=== PATIENT | female | born 1995 | race Caucasian/White ===

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

== ENCOUNTER 2017-01-31 13:44 | Emergency (ER) | payer BC ==
[2017-01-31 13:58] VITALS: BP 114/56
--- NOTE | 2017-01-31 14:08 | UC ---
Lower Extremity/Ankle HPI - HPI Summary HPI Summary: believes she has an in grown left great toe nail---she trimmed her nails then got a pedicure--the she got an infection medical side of great toe--- - History of Current Complaint Chief Complaint: UCLowerExtremity Stated Complaint: INGROWN TOE NAIL Time Seen by Provider: 01/31/17 13:53 Hx Obtained From: Patient Hx Last Menstrual Period: 01/06/17 ?: No Onset/Duration: Sudden Onset, Lasting Days, Still Present Severity Initially: Moderate Severity Currently: Moderate Pain Intensity: 5 Pain Scale Used: 0-10 Numeric Aggravating Factor(s): Standing, Ambulation Alleviating Factor(s): Rest, Elevation Able to Bear Weight: Yes - Allergies/Home Medications Allergies/Adverse Reactions: Allergies Allergy/AdvReac Type Severity Reaction Status Date / Time Azithromycin Allergy throat Verified 01/31/17 13:58 swelling Cefuroxime [From Ceftin] Allergy face Verified 01/31/17 13:58 swelling Penicillins Allergy face Verified 01/31/17 13:58 swelling Sulfa Antibiotics Allergy Unknown Verified 01/31/17 13:58 Reaction Details PMH/Surg Hx/FS Hx/Imm Hx Previously Healthy: No Endocrine History Of: Denies: Diabetes, Thyroid Disease Cardiovascular History Of: Denies: Cardiac Disorders, Hypertension Respiratory History Of: Reports: Asthma - allergy induced Denies: COPD GI/ History Of: Denies: Ulcer - Surgical History Surgical History: Yes Surgery Procedure, Year, and Place: t&a - Family History Known Family History: Positive: Hypertension - Social History Occupation: Employed Full-time Lives: With Family Alcohol Use: None Substance Use Type: None Smoking Status (MU): Never Smoked Tobacco - Immunization History Most Recent Influenza Vaccination: season Review of Systems Constitutional: Negative Skin: Other - erythema left great toe Eyes: Negative ENT: Negative Respiratory: Negative Cardiovascular: Negative Gastrointestinal: Negative Genitourinary: Negative Motor: Negative Neurovascular: Negative Musculoskeletal: Negative Neurological: Negative Psychological: Negative All Other Systems Reviewed And Are Negative: Yes Physical Exam Triage Information Reviewed: Yes Appearance: Well-Appearing, No Pain Distress, Well-Nourished Vital Signs: Initial Vital Signs Temp 98.6 F 01/31/17 13:52 Pulse 95 01/31/17 13:52 Resp 18 01/31/17 13:52 BP 114/56 01/31/17 13:52 Pulse Ox 98 01/31/17 13:52 Vital Signs Reviewed: Yes Eye Exam: Normal Eyes: Positive: Conjunctiva Clear ENT Exam: Normal ENT: Positive: Normal ENT inspection, Hearing grossly normal, Pharynx normal, TMs normal. Negative: Nasal congestion, Nasal drainage, Tonsillar swelling, Tonsillar exudate, Trismus, Muffled/hoarse voice Dental Exam: Normal Neck exam: Normal Neck: Positive: Supple, Nontender, No Lymphadenopathy Respiratory Exam: Normal Respiratory: Positive: Chest non-tender, Lungs clear, Normal breath sounds, No respiratory distress, No accessory muscle use Cardiovascular Exam: Normal Cardiovascular: Positive: RRR, No Murmur, Pulses Normal, Brisk Capillary Refill Musculoskeletal Exam: Normal Musculoskeletal: Positive: Strength Intact, ROM Intact, Edema @ - medial left great toe Neurological Exam: Normal Neurological: Positive: Alert, Muscle Tone Normal Psychological Exam: Normal Skin Exam: Normal Lower Extremity Course/Dx - Course Course Of Treatment: warm soaks, bactroban, antibiodics should infection worsen or fail to improve - Differential Dx/Diagnosis Differential Diagnosis/HQI/PQRI: Cellulitis, Infection Provider Diagnoses: Paronychia, ingrown nail left great toe Discharge - Discharge Plan Condition: Stable Disposition: HOME Prescriptions: DOXYcycline CAP(*) [DOXYcycline 100MG CAP(*)] 100 mg PO BID #14 cap Mupirocin 2% CREAM* [Bactroban 2% CREAM*] 1 applic TOPICAL TID #1 tube Patient Education Materials: Paronychia (ED), Ingrown Nail (ED), Warm Compress or Soak (ED) Referrals: Keaton Harrington DPM [Doctor of Podiatric Medicine] - 5 Days Robbie Casas DPM [Doctor of Podiatric Medicine] - 5 Days
== END 2017-01-31 14:23 | disposition home or self-care (01) ==
LOC: UCEAST 13:44
DX: L60.0 Ingrowing nail (principal); L03.032 Cellulitis of left toe; J45.909 Unspecified asthma, uncomplicated; Z88.1 Allergy status to other antibiotic agents; Z88.0 Allergy status to penicillin; Z88.2 Allergy status to sulfonamides
CPT/HCPCS: 99212; G0463

== ENCOUNTER 2017-07-21 16:05 | Emergency (ER) | payer BC ==
[2017-07-21 17:53] LABS: Hematocrit 36 % (35-47); Hemoglobin 11.9 g/dl (12.0-16.0); Mean Corpuscular HGB Conc 33 g/dl (31-36); Mean Corpuscular Hemoglobin 27 pg (27-31); Mean Corpuscular Volume 82 fL (80-97); Mean Platelet Volume 8 um3 (7.4-10.4); Red Cell Distribution Width 16 % (10.5-15); White Blood Count 7.8 10^3/ul (3.5-10.8)
[2017-07-21 18:08] LABS: Albumin 3.8 g/dL (3.2-5.2); BUN/Creatinine Ratio 7.1 (8-20); Calcium 9.1 mg/dL (8.6-10.3); EGFR African American 177.5 (>60); Globulin 2.9 g/dL (2-4); Potassium 3.6 mmol/L (3.5-5.0); Total Bilirubin 0.4 mg/dL (0.2-1.0); Total Protein 6.7 g/dL (6.4-8.9)
[2017-07-21 18:09] LABS: Troponin I 0.01 ng/mL (<0.04)
[2017-07-21 18:29] LABS: TSH (Thyroid Stimulating Horm) 0.55 mcIU/mL (0.34-5.60)
[2017-07-21 19:19] LABS: Urine Bilirubin Negative (Negative); Urine Glucose Negative (Negative); Urine Nitrite Negative (Negative)
[2017-07-21] MEDS ORDERED: Metoclopramide TAB* 10 MG PO ONE (20:29)
[2017-07-21 20:40] VITALS: BP 96/63
--- NOTE | 2017-07-22 00:31 | ED ---
Tanvir Wilkinson Nikita, scribed for Remigio Acuna MD on 07/21/17 at 1959 . Syncope/Near Syncope - HPI Summary HPI Summary: This patient is a 22 year old F presenting to ED with a chief complaint of syncope since earlier today. Pt was waiting for another pt to receive his CT scan. Pt saw black dots before she lost consciousness. Symptoms aggravated by nothing. Symptoms alleviated by spontaneous resolution. Patient reports nausea ( morning sickness) and diaphoresis. Patient denies head trauma, appetite changes , vomiting, diarrhea, URI, abdominal pain, and CP. Pt is 13 weeks . Hx of fainting spells (once a year or every couple of years). PMHx of ulcerative colitis which causes her to be fatigued and dehydrated. - History Of Current Complaint Chief Complaint: EDSyncope Time Seen by Provider: 07/21/17 19:42 Hx Obtained From: Patient Onset/Duration: Sudden Onset, Lasting Hours, Resolved Context: Loss Of Consciousness Activity At Onset: At Rest Associated Head Trauma: No Aggravating Factor(s): Nothing Alleviating Factor(s): Spontaneous Resolution Associated Signs And Symptoms: Other - Patient reports nausea (morning sickness ) and diaphoresis. Patient denies head trauma, appetite changes, vomiting, diarrhea, URI, abdominal pain, and CP Related History: Similar Episode/Dx as - fainting spells - Allergies/Home Medications Allergies/Adverse Reactions: Allergies Allergy/AdvReac Type Severity Reaction Status Date / Time Azithromycin Allergy throat Verified 01/31/17 13:58 swelling Cefuroxime [From Ceftin] Allergy face Verified 01/31/17 13:58 swelling Penicillins Allergy face Verified 01/31/17 13:58 swelling Sulfa Antibiotics Allergy Unknown Verified 01/31/17 13:58 Reaction Details PMH/Surg Hx/FS Hx/Imm Hx Endocrine/Hematology History: Denies: Hx Diabetes, Hx Thyroid Disease Cardiovascular History: Denies: Hx Hypertension Respiratory History: 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 Denies: Hx Chronic Obstructive Pulmonary Disease (COPD) GI History: Reports: Other GI Disorders - UC Denies: Hx Ulcer History: Reports: Other Problems/Disorders - UTI - Surgical History Surgery Procedure, Year, and Place: t&a - Immunization History Date of Influenza Vaccine: NO Infectious Disease History: No Infectious Disease History: Denies: Hx Clostridium Difficile, Hx Hepatitis, Hx Human Immunodeficiency Virus (HIV), Hx of Known/Suspected MRSA, Hx Shingles, Hx Tuberculosis, Hx Known/ Suspected VRE, Hx Known/Suspected VRSA, History Other Infectious Disease, Traveled Outside the [place] in Last 30 Days - Family History Known Family History: Positive: Hypertension - Social History Alcohol Use: None Substance Use Type: Reports: None Smoking Status (MU): Never Smoked Tobacco Review of Systems Positive: Skin Diaphoresis Negative: Chest Pain Positive: Other - denies URI Positive: Nausea - morning sickness, Other - appetite changes. Negative: Abdominal Pain, Vomiting, Diarrhea Positive: Other - denies head trauma Positive: Syncope All Other Systems Reviewed And Are Negative: Yes Physical Exam Triage Information Reviewed: Yes Vital Signs On Initial Exam: Initial Vitals Temp Pulse Resp BP Pulse Ox 98.4 F 87 16 101/46 100 07/21/17 16:18 07/21/17 16:18 07/21/17 16:18 07/21/17 16:18 07/21/17 16:18 Vital Signs Reviewed: Yes Appearance: Positive: Well-Appearing, No Pain Distress Skin: Positive: Warm, Skin Color Reflects Adequate Perfusion, Dry Head/Face: Positive: Normal Head/Face Inspection Eyes: Positive: EOMI, SUDEEP ENT: Positive: Normal ENT inspection Neck: Positive: Supple, Nontender Respiratory/Lung Sounds: Positive: Clear to Auscultation, Breath Sounds Present Cardiovascular: Positive: RRR Abdomen Description: Positive: Nontender, Soft Bowel Sounds: Positive: Present Musculoskeletal: Positive: Normal, Strength/ROM Intact Neurological: Positive: Normal, Sensory/Motor Intact, Alert, Oriented to Person Place, Time Psychiatric: Positive: Affect/Mood Appropriate - [place] Coma Scale Coma Scale Total: 15 Diagnostics - Vital Signs Vital Signs Temp Pulse Resp BP Pulse Ox 07/21/17 18:30 78 19 94/65 100 07/21/17 18:11 99 07/21/17 18:00 91 21 108/71 100 07/21/17 17:58 80 22 103/67 100 07/21/17 17:30 77 17 105/62 97 07/21/17 17:00 78 18 101/57 100 07/21/17 16:52 110/60 07/21/17 16:48 90 20 100 07/21/17 16:30 79 16 106/61 100 07/21/17 16:24 75 12 98 07/21/17 16:23 71 14 100 07/21/17 16:22 101/46 07/21/17 16:18 98.4 F 87 16 101/46 100 - Laboratory Lab Results: Lab Results 07/21/17 07/21/17 07/21/17 Range/Units 16:50 17:24 17:24 WBC 7.8 (3.5-10.8) 10^3/ul RBC 4.40 (4.0-5.4) 10^6/ul Hgb 11.9 L (12.0-16.0) g/dl Hct 36 (35-47) % MCV 82 (80-97) fL MCH 27 (27-31) pg MCHC 33 (31-36) g/dl RDW 16 H (10.5-15) % Plt Count 224 (150-450) 10^3/ul MPV 8 (7.4-10.4) um3 Neut % (Auto) 79.3 (38-83) % Lymph % (Auto) 15.8 L (25-47) % Menard % (Auto) 4.2 (1-9) % Eos % (Auto) 0.2 (0-6) % Baso % (Auto) 0.5 (0-2) % Absolute Neuts (auto) 6.2 (1.5-7.7) 10^3/ul Absolute Lymphs (auto) 1.2 (1.0-4.8) 10^3/ul Absolute Monos (auto) 0.3 (0-0.8) 10^3/ul Absolute Eos (auto) 0 (0-0.6) 10^3/ul Absolute Basos (auto) 0 (0-0.2) 10^3/ul Absolute Nucleated RBC 0 10^3/ul Nucleated RBC % 0 Sodium 134 (133-145) mmol/L Potassium 3.6 (3.5-5.0) mmol/L Chloride 106 (101-111) mmol/L Carbon Dioxide 22 (22-32) mmol/L Anion Gap 6 (2-11) mmol/L BUN 4 L (6-24) mg/dL Creatinine 0.56 (0.51-0.95) mg/dL Est GFR ( Amer) 177.5 (>60) Est GFR (Non-Af Amer) 138.0 (>60) BUN/Creatinine Ratio 7.1 L (8-20) Glucose 84 (70-100) mg/dL Lactic Acid (0.5-2.0) mmol/L Calcium 9.1 (8.6-10.3) mg/dL Magnesium 2.0 (1.9-2.7) mg/dL Total Bilirubin 0.40 (0.2-1.0) mg/dL AST 10 L (13-39) U/L ALT 7 (7-52) U/L Alkaline Phosphatase 38 (34-104) U/L Troponin I 0.01 (<0.04) ng/mL Total Protein 6.7 (6.4-8.9) g/dL Albumin 3.8 (3.2-5.2) g/dL Globulin 2.9 (2-4) g/dL Albumin/Globulin Ratio 1.3 (1-3) TSH 0.55 (0.34-5.60) mcIU/mL Beta HCG, Quant Pending Urine Color Yellow Urine Appearance Clear Urine pH 6.0 (5-9) Ur Specific [place] 1.009 L (1.010-1.030) Urine Protein Negative (Negative) Urine Ketones 1+ H (Negative) Urine Blood Negative (Negative) Urine Nitrate Negative (Negative) Urine Bilirubin Negative (Negative) Urine Urobilinogen Negative (Negative) Ur Leukocyte Esterase Negative (Negative) Urine Glucose Negative (Negative) 07/21/17 Range/Units 17:24 WBC (3.5-10.8) 10^3/ul RBC (4.0-5.4) 10^6/ul Hgb (12.0-16.0) g/dl Hct (35-47) % MCV (80-97) fL MCH (27-31) pg MCHC (31-36) g/dl RDW (10.5-15) % Plt Count (150-450) 10^3/ul MPV (7.4-10.4) um3 Neut % (Auto) (38-83) % Lymph % (Auto) (25-47) % Menard % (Auto) (1-9) % Eos % (Auto) (0-6) % Baso % (Auto) (0-2) % Absolute Neuts (auto) (1.5-7.7) 10^3/ul Absolute Lymphs (auto) (1.0-4.8) 10^3/ul Absolute Monos (auto) (0-0.8) 10^3/ul Absolute Eos (auto) (0-0.6) 10^3/ul Absolute Basos (auto) (0-0.2) 10^3/ul Absolute Nucleated RBC 10^3/ul Nucleated RBC % Sodium (133-145) mmol/L Potassium (3.5-5.0) mmol/L Chloride (101-111) mmol/L Carbon Dioxide (22-32) mmol/L Anion Gap (2-11) mmol/L BUN (6-24) mg/dL Creatinine (0.51-0.95) mg/dL Est GFR ( Amer) (>60) Est GFR (Non-Af Amer) (>60) BUN/Creatinine Ratio (8-20) Glucose (70-100) mg/dL Lactic Acid 0.8 (0.5-2.0) mmol/L Calcium (8.6-10.3) mg/dL Magnesium (1.9-2.7) mg/dL Total Bilirubin (0.2-1.0) mg/dL AST (13-39) U/L ALT (7-52) U/L Alkaline Phosphatase (34-104) U/L Troponin I (<0.04) ng/mL Total Protein (6.4-8.9) g/dL Albumin (3.2-5.2) g/dL Globulin (2-4) g/dL Albumin/Globulin Ratio (1-3) TSH (0.34-5.60) mcIU/mL Beta HCG, Quant Urine Color Urine Appearance Urine pH (5-9) Ur Specific [place] (1.010-1.030) Urine Protein (Negative) Urine Ketones (Negative) Urine Blood (Negative) Urine Nitrate (Negative) Urine Bilirubin (Negative) Urine Urobilinogen (Negative) Ur Leukocyte Esterase (Negative) Urine Glucose (Negative) Result Diagrams: 07/21/17 17:24 07/21/17 17:24 Lab Statement: Any lab studies that have been ordered have been reviewed, and results considered in the medical decision making process. - EKG 1928 Cardiac Rate: NL EKG Rhythm: Sinus Rhythm - [address] Segment: Normal Ectopy: None Course/Dx Assessment/Plan: This patient is a 22 year old F presenting to ED with a chief complaint of syncope since earlier today. Pt was waiting for another pt to receive his CT scan. Pt saw black dots before she lost consciousness. Symptoms aggravated by nothing. Symptoms alleviated by spontaneous resolution. Patient reports nausea (morning sickness) and diaphoresis. Patient denies head trauma, appetite changes, vomiting, diarrhea, URI, abdominal pain, and CP. Medications reviewed. Allergies noted. EKG reveals NSR at 64 bpm, nml ST, and no ectopy. In the ED course, pt was given Reglan. Pt will be discharged. Pt is agreeable with this plan. FEELS WELL IN ED. DISCUSSED RESULTS WITH PATIENT. SHE TOOK PO AND AMBULATED IN THE ED. F/U PMD; RETURN IF WORSE. - Diagnoses Provider Diagnoses: Syncope, Nausea and vomiting in Discharge - Discharge Plan Condition: Stable Disposition: HOME Prescriptions: Metoclopramide TAB* [Reglan TAB*] 10 mg PO Q6H PRN #10 tab PRN Reason: Nausea Patient Education Materials: Nausea and Vomiting in (ED), Syncope (ED ) Referrals: Juan CEDEÑO,Joe Krause [Primary Care Provider] - Additional Instructions: FOLLOW UP WITH YOUR DOCTOR. RETURN TO THE EMERGENCY DEPARTMENT FOR ANY WORSENING OF YOUR CONDITION; PASSING OUT, YOU FEEL ILL OR QUESTIONS OR CONCERNS. The documentation as recorded by the Tanvir borges Nikita accurately reflects the service I personally performed and the decisions made by me, Remigio Acuna MD.
== END 2017-07-21 20:40 | disposition home or self-care (01) ==
LOC: ED 16:05
DX: R55 Syncope and collapse (principal); Z3A.13 13 weeks gestation of pregnancy; O21.0 Mild hyperemesis gravidarum; Z88.1 Allergy status to other antibiotic agents; Z88.2 Allergy status to sulfonamides; Z88.8 Allergy status to other drugs, medicaments and biological substances; Z32.02 Encounter for pregnancy test, result negative
CPT/HCPCS: 36415; 80053; 81003; 83605; 83735; 84443; 84484; 84702; 85025; 93005; 99283; A9270-GY

== ENCOUNTER 2018-01-10 00:36 | Inpatient (IN) | payer BC ==
[2018-01-10] MEDS ORDERED: Calcium Carbonate CHEW TAB* 500 MG (TUMS) ONE (04:08)
[2018-01-10] MEDS ORDERED: Calcium Carbonate CHEW TAB* 500 MG (TUMS) PO PRN (04:34)
[2018-01-10] MEDS ORDERED: Heparin VIAL(*) 5000 UNITS/ML VIAL (FIVE THOUSAND) SUBCUT SCH (06:00)
[2018-01-10 06:14] LABS: ABS Basophils 0 10^3/ul (0-0.2); ABS Eosinophils 0 10^3/ul (0-0.6); ABS Lymphocytes 1.5 10^3/ul (1.0-4.8); ABS Monocytes 0.6 10^3/ul (0-0.8); ABS Neutrophils 5.1 10^3/ul (1.5-7.7); ABS Nucleated RBC 0 10^3/ul; Eosinophil % 0.2 % (0-6); Hematocrit 37 % (35-47); Hemoglobin 12.7 g/dl (12.0-16.0); Lymphocyte % 21.3 % (25-47); Mean Corpuscular HGB Conc 35 g/dl (31-36); Mean Corpuscular Hemoglobin 29 pg (27-31); Mean Corpuscular Volume 84 fL (80-97); Mean Platelet Volume 7.7 um3 (7.4-10.4); Nucleated Red Blood Cells % 0.1; Platelet Count 224 10^3/ul (150-450); Red Blood Count 4.37 10^6/ul (4.0-5.4); Red Cell Distribution Width 14 % (10.5-15); White Blood Count 7.2 10^3/ul (3.5-10.8)
--- NOTE | 2018-01-10 06:22 | HP ---
General Information - General Information Maternal Age: 22 Grav: 1 Para: 0 SAB: 0 IEA: 0 Estimated Due Date: 01/14/18 Determined By: Early Ultrasound Gestational Age in Weeks and Days: 39 Weeks and 3 Days Maternal Blood Type and Rh: B Positive - Results this Serology/RPR Result: Non-Reactive Rubella Result: Non-Immune HBsAg Result: Negative HIV Result: Negative GBS Culture Result: Negative Past Medical History Past Medical History Comment: ulcerative colitis mild asthma Lyme disease 2017 Cryptosporidiosis Past Surgical History Comment: T&A 04/2003 Pertinent Family History: See Records - Antepartal Records Antepartal Records: Reviewed, Complicated by: - non immune to varicella, rubella Review of Systems Constitutional: Uncomfortable CV Complaint: No Respiratory: Shortness of Breath: No Gastrointestinal: No Nausea/Vomiting Genitourinary: No Leaking Fluid Musculoskeletal: Contractions Neurological: No Headache Movement: Normal - Comments soft stool Exam Allergies/Adverse Reactions: Allergies azithromycin Allergy (Verified 01/10/18 04:41) Swelling THROAT SWELLING cefuroxime Allergy (Verified 01/10/18 04:41) Swelling FACE SWELLING Penicillins Allergy (Verified 01/10/18 04:41) Swelling FACE SWELLING Sulfa (Sulfonamide Antibiotics) Allergy (Verified 01/10/18 04:41) Unknown Reaction Details afebrile, VSS. See OBIX Lab Values - Entire Visit: platelets 224 - Measurements Height: 5 ft 5 in Weight: 138 lb Weight in lbs: 138 Body Mass Index (BMI): 22.9 Pre- Weight: 115 lb Weight Gained This : 23 lbs and 0 ozs - Exam Abdomen: No Upper Quadrant Pain Breast: - - soft, no masses CVA: No CVA Tenderness Extremities: No Edema Heart: Normal Rhythm/Heart Sounds HEENT: No Significant Findings Lungs: Clear Bilaterally Reflexes: DTR 2+ Thyroid: No Thyromegaly - Abdominal Exam Abdomen Exam: Fundal Height Consistent with Dates - Ultrasound/Biophysical Profile Ultrasound Status: Not Done Targeted Exam Findings See L&D Outpatient Visit Provider Note for Findings: N/A Estimated Weight: 7 lbs Cervical Exam: 4cm Effacement: 90% Station: -1 Presenting Part: Vertex Membrane Status: Intact EFM Findings - External Monitor Findings Baseline Heart Rate: 130 External Monitor Findings: Accelerations Present, No Pattern of Variable or Late Decelerations, Variability Moderate External Monitor Findings Comment: category 1 Contractions: Regular, Moderate, 45-90 Seconds Contraction Frequency: every 4 minutes Assessment/Plan - Reason for Visit Reason for Visit: labor Was 1-2cm on arrival (approx 1 am), was 2-3 cm, admitted. Now 4cm, tired, would like epidural Anticipate vaginal delivery - Plan Plan: Active Labor - Date/Time of Admission Date of Admission: 01/10/18 Time of Admission: 04:35
[2018-01-10] MEDS ORDERED: OBEPIDURAL* 250 ML EPIDURAL ONE (06:34)
[2018-01-10] MEDS ORDERED: Famotidine TAB* 20 MG PO PRN (07:28)
[2018-01-10] MEDS ORDERED: Sodium Citrate/Citric Acid* 15 ML UDC PO PRN (07:28)
[2018-01-10] MEDS ORDERED: OBEPIDURAL* 250 ML EPIDURAL SCH (08:00)
[2018-01-10] MEDS ORDERED: PTO:Mesalamine (NF) 1.2 GM TAB PO SCH (09:00)
[2018-01-10] MEDS: Phenylephrine IV* 40 MCG/ML 10 ML SYRINGE IV PUSH PRN ×2 (11:07→11:19)
[2018-01-10] MEDS ORDERED: Oxytocin in LR* 20 UNITS/1,000 ML BAG IVPB SCH ×2 (12:00→23:45)
[2018-01-10] MEDS ORDERED: Oxytocin in LR* 20 UNITS/1,000 ML BAG IVPB ONE (12:08)
[2018-01-10] MEDS ORDERED: Dibucaine 1% 28.35 GM TUBE PR PRN (23:48)
[2018-01-10] MEDS ORDERED: Measles, Mumps,Rubella VACC* 0.5 ML/VIAL SUBCUT ONE (23:48)
[2018-01-10] MEDS ORDERED: Glycerin ADULT SUPP PR PRN (23:48)
[2018-01-10] MEDS ORDERED: Witch Hazel PAD* JAR TOPICAL PRN (23:48)
[2018-01-10] MEDS ORDERED: Acetaminophen TAB* 325 MG PO PRN (23:48)
[2018-01-11 06:24] LABS: ABS Basophils 0 10^3/ul (0-0.2); ABS Eosinophils 0 10^3/ul (0-0.6); ABS Lymphocytes 1.4 10^3/ul (1.0-4.8); ABS Monocytes 1.1 10^3/ul (0-0.8); ABS Neutrophils 5.4 10^3/ul (1.5-7.7); ABS Nucleated RBC 0 10^3/ul; Eosinophil % 0.1 % (0-6); Hematocrit 32 % (35-47); Hemoglobin 10.7 g/dl (12.0-16.0); Lymphocyte % 17.8 % (25-47); Mean Corpuscular HGB Conc 34 g/dl (31-36); Mean Corpuscular Hemoglobin 28 pg (27-31); Mean Corpuscular Volume 84 fL (80-97); Mean Platelet Volume 7.7 um3 (7.4-10.4); Nucleated Red Blood Cells % 0; Platelet Count 190 10^3/ul (150-450); Red Blood Count 3.78 10^6/ul (4.0-5.4); Red Cell Distribution Width 14 % (10.5-15); White Blood Count 7.9 10^3/ul (3.5-10.8)
[2018-01-11] MEDS: Docusate CAP* 100 MG PO SCH ×2 (08:47→14:00)
[2018-01-11] MEDS ORDERED: Ferrous Gluconate TAB* 324 MG TAB PO SCH (09:00)
[2018-01-11] MEDS: Ibuprofen TAB* 600 MG PO PRN (16:53)
[2018-01-12] MEDS: Ibuprofen TAB* 600 MG PO PRN (04:33)
[2018-01-12 08:05] VITALS: BP 96/55
[2018-01-12] MEDS ORDERED: Varicella Virus Vaccine Live* 0.5 ML VIAL SUBCUT ONE (09:00)
[2018-01-12] MEDS: Docusate CAP* 100 MG PO SCH ×2 (09:50)
== END 2018-01-12 16:16 | disposition home or self-care (01) | DRG 560 ==
LOC: MCHOBOUT 00:36 → MCHOB 04:36
PROVIDERS: ADMIT Midwife; ATTEND Midwife
PROC: 10E0XZZ Delivery of Products of Conception, External Approach (ICD-10-PCS; principal; 2018-01-10)
PROC: 10907ZC Drainage of Amniotic Fluid, Therapeutic from Products of Conception, Via Natural or Artificial Opening (ICD-10-PCS; 2018-01-10)
DX: O80 Encounter for full-term uncomplicated delivery (principal); K51.90 Ulcerative colitis, unspecified, without complications; J45.909 Unspecified asthma, uncomplicated; Z3A.39 39 weeks gestation of pregnancy; Z37.0 Single live birth
CPT/HCPCS: 36415; 85025; 86850; 86900; 86901; A9270-GY

== ENCOUNTER 2019-03-20 17:59 | Emergency (ER) | payer BC ==
[2019-03-20 18:13] VITALS: BP 117/72
--- NOTE | 2019-03-20 18:53 | UC ---
Hand/Wrist HPI - HPI Summary HPI Summary: 23-year-old woman comes in with a chief complaint of right wrist pain. Started 2-3 days ago. No known specific trauma. Pain is worse with any kind of attempt at range of motion. 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 No complaint of any weakness or numbness. No elbow or shoulder pain. - History Of Current Complaint Chief Complaint: UCUpperExtremity Stated Complaint: R WRIST PAIN Time Seen by Provider: 03/20/19 18:35 Hx Last Menstrual Period: [id number] Pain Intensity: 8 - Allergies/Home Medications Allergies/Adverse Reactions: Allergies Allergy/AdvReac Type Severity Reaction Status Date / Time azithromycin Allergy Swelling Verified 03/20/19 18:14 cefuroxime Allergy Swelling Verified 03/20/19 18:14 Penicillins Allergy Swelling Verified 03/20/19 18:14 Sulfa (Sulfonamide Allergy Unknown Verified 03/20/19 18:14 Antibiotics) Reaction Details Home Medications: Home Medications Levonorgestrel (Iud) [Liletta IUD] 18.6 mcg IU ONCE 03/20/19 [History Confirmed 03/20/19] PMH/Surg Hx/FS Hx/Imm Hx Previously Healthy: Yes - Surgical History Surgical History: Yes Surgery Procedure, Year, and Place: t&a - Family History Known Family History: Positive: Hypertension - Social History Alcohol Use: Rare Substance Use Type: None Smoking Status (MU): Never Smoked Tobacco - Immunization History Most Recent Influenza Vaccination: fall 2016 Most Recent Pneumonia Vaccination: n/a Review of Systems All Other Systems Reviewed And Are Negative: Yes Constitutional: Positive: Negative Skin: Positive: Negative Eyes: Positive: Negative ENT: Positive: Negative Respiratory: Positive: Negative Cardiovascular: Positive: Negative Gastrointestinal: Positive: Negative Motor: Positive: Decreased ROM Neurovascular: Positive: Negative Musculoskeletal: Positive: Other: - SEE HPI Neurological: Positive: Negative Psychological: Positive: Negative Is Patient Immunocompromised?: No Physical Exam Triage Information Reviewed: Yes Appearance: Well-Appearing, Well-Nourished, Pain Distress - MILD WITH ROM Vital Signs: Initial Vital Signs Temp 97.6 F 03/20/19 18:06 Pulse 75 03/20/19 18:06 Resp 16 03/20/19 18:06 BP 117/72 03/20/19 18:06 Pulse Ox 100 03/20/19 18:06 Vital Signs Reviewed: Yes Eye Exam: Normal Eyes: Positive: Conjunctiva Clear Neck: Positive: Supple Respiratory: Positive: No respiratory distress Musculoskeletal: Positive: Other: - Right wrist is tender to palpation circumferentially. When she tries abduction and abduction and flexion and extension she is limited due to pain. The skin is not hot to touch. Patient can move her fingers but that increases the pain in the wrist. Normal sensation normal radial pulse. Normal capillary refill. Elbow has full range of motion. Neurological: Positive: Alert Psychological Exam: Normal Psychological: Positive: Normal Response To Family, Age Appropriate Behavior Skin Exam: Normal Hand/Wrist Course/Dx - Course Course Of Treatment: I discussed the x-rays with the patient. I do not see any fracture radiologist reading is pending. Treating the wrist as it tendinitis. Recommended ice anti-inflammatories and a cock-up splint. If not improved follow-up sports medicine. - Differential Dx/Diagnosis Provider Diagnosis: Right wrist pain, Right wrist tendonitis Discharge - Sign-Out/Discharge Documenting (check all that apply): Patient Departure All imaging exams completed and their final reports reviewed: No - Discharge Plan Condition: Stable Disposition: HOME Patient Education Materials: Wrist Injury (ED), Tendinitis (ED) Referrals: Juan CEDEÑO,Joe Krause [Primary Care Provider] - [facility] [Provider Group] Additional Instructions: FOLLOW UP WITH SPORTS MEDICINE IF NOT COMPLETELY IMPROVED. TAKE IBUPROFEN 600MG EVERY 6 HOURS NEEDED. GET RECHECKED SOONER IF YOUR CONDITION WORSENS OR ANY QUESTIONS OR CONCERNS. - Billing Disposition and Condition Condition: STABLE Disposition: Home
== END 2019-03-20 19:08 | disposition home or self-care (01) ==
LOC: UCEAST 17:59
DX: M77.9 Enthesopathy, unspecified (principal); Z88.0 Allergy status to penicillin; Z88.2 Allergy status to sulfonamides
CPT/HCPCS: 99211; G0463

== ENCOUNTER 2019-11-25 15:45 | Emergency (ER) | payer BC ==
[2019-11-25] MEDS ORDERED: NS 0.9% 1000 ML** 2,000 ML IV ONE (16:06)
[2019-11-25] MEDS ORDERED: Ondansetron INJ* 2 MG/ML VIAL IV ONE (16:06)
[2019-11-25] MEDS ORDERED: Morphine 4 MG/ML VIAL (1 ml) 4 MG/ML VIAL IV ONE (16:07)
--- NOTE | 2019-11-25 16:08 | ED ---
GI/ HPI - HPI Summary HPI Summary: 24-year-old female presents with vomiting and diarrhea today. States it started suddenly. She has diffuse abd pain greatest in her lower abdomen. She has never had these symptoms before. she has history of ulcerative colitis and has been in remission for a couple years. Her GI is dr naranjo. she denies any blood in her stool. States her stool is watery. Denies any recent antibiotic use. No previous abdominal surgeries. No fevers. States she feels weak and dizzy. Has not been keeping anything down. She tried some Pepto-Bismol without any relief. No urinary symptoms. no one around her is sick. - History of Current Complaint Chief Complaint: EDNauseaVomitDiarrh Time Seen by Provider: 11/25/19 15:46 Stated Complaint: VOMITING/DIARRHEA PER PT Hx Last Menstrual Period: [id number] Pain Intensity: 6 - Allergy/Home Medications Allergies/Adverse Reactions: Allergies Allergy/AdvReac Type Severity Reaction Status Date / Time azithromycin Allergy Swelling Verified 11/25/19 15:50 cefuroxime Allergy Swelling Verified 11/25/19 15:50 Penicillins Allergy Swelling Verified 11/25/19 15:50 Sulfa (Sulfonamide Allergy Unknown Verified 11/25/19 15:50 Antibiotics) Reaction Details Home Medications: Home Medications Mesalamine [Lialda] 1.2 gm PO DAILY 01/10/18 [History Confirmed 11/25/19] Ibuprofen TAB* [Motrin TAB* 600 MG] 600 mg PO Q6H PRN tab 01/12/18 [Rx Confirmed 11/25/19] Levonorgestrel (Iud) [Liletta IUD] 18.6 mcg IU ONCE 03/20/19 [History Confirmed 11/25/19] Ondansetron ODT TAB* [Zofran 4 MG Odt TAB*] 4 mg PO Q6H PRN #12 tab.odt [Rx] predniSONE [Prednisone 20 MG TAB] 40 mg PO DAILY #8 tablet 11/25/19 [Rx] PMH/Surg Hx/FS Hx/Imm Hx Endocrine/Hematology History: Denies: Hx Diabetes, Hx Thyroid Disease Cardiovascular History: Denies: Hx Hypertension Respiratory History: 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 Denies: Hx Chronic Obstructive Pulmonary Disease (COPD) GI History: Reports: Other GI Disorders - UC Denies: Hx Ulcer History: Reports: Other Problems/Disorders - UTI Denies: Hx Kidney Infection Psychiatric History: Denies: Hx Anxiety, Hx Depression, Other Psychiatric Issues/Disorders - Surgical History Surgery Procedure, Year, and Place: t&a - Immunization History Date of Influenza Vaccine: NO Infectious Disease History: No Infectious Disease History: Denies: Hx Clostridium Difficile, Hx Hepatitis, Hx Human Immunodeficiency Virus (HIV), Hx of Known/Suspected MRSA, Hx Shingles, Hx Tuberculosis, Hx Known/ Suspected VRE, Hx Known/Suspected VRSA, History Other Infectious Disease, Traveled Outside the [place] in Last 30 Days - Family History Known Family History: Positive: Hypertension - Social History Alcohol Use: Rare Substance Use Type: Reports: None Smoking Status (MU): Never Smoked Tobacco Review of Systems Negative: Fever Negative: Chest Pain Negative: Shortness Of Breath Positive: Abdominal Pain, Vomiting, Diarrhea, Nausea All Other Systems Reviewed And Are Negative: Yes Physical Exam Triage Information Reviewed: Yes Vital Signs On Initial Exam: Initial Vitals Temp Pulse Resp BP Pulse Ox 97.5 F 88 20 107/74 100 11/25/19 15:48 11/25/19 15:48 11/25/19 15:48 11/25/19 15:48 11/25/19 15:48 Vital Signs Reviewed: Yes Appearance: Positive: Well-Appearing Skin: Positive: Warm, Dry Head/Face: Positive: Normal Head/Face Inspection Eyes: Positive: Normal, EOMI, SUDEEP, Conjunctiva Clear ENT: Positive: Pharynx normal, TMs normal Respiratory/Lung Sounds: Positive: Clear to Auscultation, Breath Sounds Present Cardiovascular: Positive: Normal, RRR Abdomen Description: Positive: Soft, Other: - tenderness diffuse, greatest in lower abd Bowel Sounds: Positive: Present Musculoskeletal: Positive: Normal Neurological: Positive: Normal Psychiatric: Positive: Normal Procedures - Sedation Patient Received Moderate/Deep Sedation with Procedure: No Diagnostics - Vital Signs Vital Signs Temp Pulse Resp BP Pulse Ox 11/25/19 15:48 97.5 F 88 20 107/74 100 - Laboratory Result Diagrams: 11/25/19 16:07 11/25/19 16:07 Lab Statement: Any lab studies that have been ordered have been reviewed, and results considered in the medical decision making process. Re-Evaluation - Re-Evaluation First Eval Re-Evaluation Time: 17:17 Change: Improved Comment: feeling better, still some pain GIGU Course/Dx - Course Course Of Treatment: 24-year-old female presents with vomiting and diarrhea today. States it started suddenly. She has diffuse abd pain greatest in her lower abdomen. She has never had these symptoms before. she has history of ulcerative colitis and has been in remission for a couple years. Her GI is dr naranjo. she denies any blood in her stool. States her stool is watery. Denies any recent antibiotic use. No previous abdominal surgeries. No fevers. States she feels weak and dizzy. Has not been keeping anything down. She tried some Pepto-Bismol without any relief. No urinary symptoms. no one around her is sick. On exam has diffuse abd tenderness greatest in lower abd. wbc 16. electrolytes normal. crp normal. gave fluids, zofran and morphine and feeling a little better. discussed with dr naranjo who says to check c diff. if negative start either steriod or increase mesalamine. if pos no steriod. patient will be signed out to [facility] pending reevulation for disposition. - Diagnoses Differential Diagnoses - Female: Colitis, Gastroenteritis (Viral), Gastroenteritis (Bacterial) Provider Diagnoses: Abdominal pain, Nausea vomiting and diarrhea Discharge ED - Sign-Out/Discharge Documenting (check all that apply): Sign-Out Patient Signing out patient TO: Tete Ellison - Discharge Plan Condition: Stable Disposition: HOME Prescriptions: Ondansetron ODT TAB* [Zofran 4 MG Odt TAB*] 4 mg PO Q6H PRN #12 tab.odt PRN Reason: Nausea predniSONE [Prednisone 20 MG TAB] 40 mg PO DAILY #8 tablet Patient Education Materials: Acute Abdominal Pain (ED) Referrals: Hadley Naranjo MD [Medical Doctor] - 3 Days Additional Instructions: You were seen in the emergency department today for abdominal pain. There is no evidence that your symptoms are due to a life-threatening or infectious process requiring intervention at this time. Please follow up with your primary care provider or security public safety officer in 3 days for further evaluation and management of your symptoms. Please return to the emergency department immediately if you develop any new or worsening symptoms. Take prednisone 40mg daily x 4 days take zofran every 6 hours as needed for nausea Your pharmacy closes at 9PM - Billing Disposition and Condition Condition: STABLE Disposition: Home - Attestation Statements Provider Attestation: I was available for consultation for this patient. I did not evaluate the patient or participate in any medical decision making or disposition decisions unless I am specifically named in the chart as having consulted on the patient. If I have consulted on the patient, please see my own ED note on the patient encounter. Radha Barraza MD
[2019-11-25 16:22] LABS: ABS Eosinophils 0.1 10^3/ul (0-0.6); ABS Lymphocytes 1.2 10^3/ul (1.0-4.8); ABS Monocytes 1.2 10^3/ul (0-0.8); ABS Neutrophils 13.5 10^3/ul (1.5-7.7); Eosinophil % 0.5 %; Hematocrit 48 % (35-47); Hemoglobin 16.8 g/dL (12.0-16.0); Lymphocyte % 7.7 %; Mean Corpuscular HGB Conc 35 g/dL (31-36); Mean Corpuscular Hemoglobin 31 pg (27-31); Mean Corpuscular Volume 88 fL (80-97); Mean Platelet Volume 8.4 fL (7.4-10.4); Nucleated Red Blood Cells % 0.1; Platelet Count 305 10^3/uL (150-450); Red Blood Count 5.49 10^6 /uL (3.70-4.87); Red Cell Distribution Width 13 % (10-15); White Blood Count 16.1 10^3/uL (3.5-10.8)
[2019-11-25 16:38] LABS: ALT 11 U/L (7-52); AST 14 U/L (13-39); Albumin 4.9 g/dL (3.2-5.2); Albumin/Globulin Ratio 1.5 (1-3); Alkaline Phosphatase 67 U/L (34-104); Anion Gap 9 mmol/L (2-11); BUN/Creatinine Ratio 12.5 (8-20); Blood Urea Nitrogen 10 mg/dL (6-24); C Reactive Protein 1.99 mg/L (<8.01); CO2 Carbon Dioxide 21 mmol/L (22-32); Chloride 108 mmol/L (101-111); EGFR African American 108.5 (>60); EGFR Non-African American 89.7 (>60); Globulin 3.3 g/dL (2-4); Glucose 107 mg/dL (70-100); Potassium 3.7 mmol/L (3.5-5.0); Sodium 138 mmol/L (135-145); Total Protein 8.2 g/dL (6.4-8.9)
[2019-11-25 16:44] LABS: HCG Pregnancy < 0.60 mIU/mL
[2019-11-25] MEDS ORDERED: Ketorolac INJ* 30 MG/ML 1 ML VIAL IV PUSH ONE (17:18)
[2019-11-25 17:22] LABS: Urine Appearance Clear; Urine Bilirubin Negative (Negative); Urine Blood 2+ (Negative); Urine Color Amber; Urine Glucose Negative (Negative); Urine Ketones 1+ (Negative); Urine Nitrite Negative (Negative); Urine Protein Negative (Negative); Urine Specific Gravity 1.029 (1.010-1.030); Urine Urobilinogen Negative (Negative)
[2019-11-25 17:32] LABS: Urine Bacteria Absent (Absent); Urine Red Blood Cell 1+(3-5/hpf) (Absent); Urine Squamous Epithelial Cell Present (Absent); Urine White Blood Cell Absent (Absent)
--- NOTE | 2019-11-25 17:37 | ED ---
Progress - Progress Note Progress Note: Pt signed out to me by MARY Floyd at 1730. C. Dif test returned negative. Meron Bueno Consulted GI, Dr. Naranjo who suggested beginning the patient on steroids and to discharge to follow up at his clinic. Patient given prescription for 40 mg prednisone daily for 4 days as well as Zofran. Patient discharged to outpatient follow-up. Patient instructed to return to the emergency department for CT imaging should her symptoms worsen. It was considered that CT imaging was more harmful than beneficial at this time. Re-Evaluation - Re-Evaluation First Eval Re-Evaluation Time: 17:17 Change: Improved Comment: feeling better, still some pain Course/Dx - Course Course Of Treatment: 24-year-old female presents with vomiting and diarrhea today. States it started suddenly. She has diffuse abd pain greatest in her lower abdomen. She has never had these symptoms before. she has history of ulcerative colitis and has been in remission for a couple years. Her GI is dr naranjo. she denies any blood in her stool. States her stool is watery. Denies any recent antibiotic use. No previous abdominal surgeries. No fevers. States she feels weak and dizzy. Has not been keeping anything down. She tried some Pepto-Bismol without any relief. No urinary symptoms. no one around her is sick. On exam has diffuse abd tenderness greatest in lower abd. wbc 16. electrolytes normal. crp normal. gave fluids, zofran and morphine and feeling a little better. patient will be signed out to [facility] pending reevulation for disposition. - Diagnoses Provider Diagnoses: Abdominal pain, Nausea vomiting and diarrhea Discharge ED - Sign-Out/Discharge Documenting (check all that apply): Patient Departure - Discharge Plan Condition: Stable Disposition: HOME Prescriptions: Ondansetron ODT TAB* [Zofran 4 MG Odt TAB*] 4 mg PO Q6H PRN #12 tab.odt PRN Reason: Nausea predniSONE [Prednisone 20 MG TAB] 40 mg PO DAILY #8 tablet Patient Education Materials: Acute Abdominal Pain (ED) Referrals: Hadley Naranjo MD [Medical Doctor] - 3 Days Additional Instructions: You were seen in the emergency department today for abdominal pain. There is no evidence that your symptoms are due to a life-threatening or infectious process requiring intervention at this time. Please follow up with your primary care provider or alining inspector in 3 days for further evaluation and management of your symptoms. Please return to the emergency department immediately if you develop any new or worsening symptoms. Take prednisone 40mg daily x 4 days take zofran every 6 hours as needed for nausea Your pharmacy closes at 9PM - Billing Disposition and Condition Condition: STABLE Disposition: Home - Attestation Statements Provider Attestation: I was available for consultation for this patient. I did not evaluate the patient or participate in any medical decision making or disposition decisions unless I am specifically named in the chart as having consulted on the patient. If I have consulted on the patient, please see my own ED note on the patient encounter. Radha Barraza MD
[2019-11-25] MEDS ORDERED: Ondansetron ODT TAB* 4 MG SL ONE (18:53)
[2019-11-25 19:07] VITALS: BP 112/65
== END 2019-11-25 19:07 | disposition home or self-care (01) ==
LOC: ED 15:45
DX: R10.30 Lower abdominal pain, unspecified (principal); R11.2 Nausea with vomiting, unspecified; R19.7 Diarrhea, unspecified; Z88.1 Allergy status to other antibiotic agents; Z88.0 Allergy status to penicillin; Z88.2 Allergy status to sulfonamides
CPT/HCPCS: 36415; 80053; 81003; 81015; 83690; 84702; 85025; 86140; 87045; 87046; 87493; 87899; 96361; 96374; 96375; 99283; A9270-GY; J1885; J2270; J2405; J7512

== ENCOUNTER 2020-11-21 16:14 | Observation (INO) ==
[2020-11-21] MEDS ORDERED: NS 0.9% 1000 ml BAG 1,000 ML IV ONE ×2 (17:31→20:01)
[2020-11-21 17:48] LABS: ABS Basophils 0.1 10^3/ul (0-0.2); ABS Eosinophils 0.1 10^3/ul (0-0.6); ABS Lymphocytes 3.6 10^3/ul (1.0-4.8); ABS Monocytes 0.8 10^3/ul (0-0.8); ABS Neutrophils 10.1 10^3/ul (1.5-7.7); Eosinophil % 0.9 %; Hematocrit 44 % (35-47); Hemoglobin 14.7 g/dL (12.0-16.0); Lymphocyte % 24.5 %; Mean Corpuscular HGB Conc 34 g/dL (31-36); Mean Corpuscular Hemoglobin 30 pg (27-31); Mean Corpuscular Volume 89 fL (80-97); Mean Platelet Volume 8.6 fL (7.4-10.4); Platelet Count 349 10^3/uL (150-450); Red Cell Distribution Width 13 % (10-15); White Blood Count 14.8 10^3/uL (3.5-10.8)
[2020-11-21 17:59] LABS: ALT 9 U/L (7-52); AST 12 U/L (13-39); Albumin 4.2 g/dL (3.2-5.2); Albumin/Globulin Ratio 1.6 (1-3); Alkaline Phosphatase 52 U/L (34-104); Anion Gap 7 mmol/L (2-11); BUN/Creatinine Ratio 12.8 (8-20); Blood Urea Nitrogen 10 mg/dL (6-24); CO2 Carbon Dioxide 24 mmol/L (22-32); Calcium 9.4 mg/dL (8.6-10.3); Chloride 104 mmol/L (101-111); EGFR African American 110.7 (>60); EGFR Non-African American 91.5 (>60); Globulin 2.6 g/dL (2-4); Glucose 135 mg/dL (70-100); Potassium 3.2 mmol/L (3.5-5.0); Sodium 135 mmol/L (135-145); Total Protein 6.8 g/dL (6.4-8.9)
[2020-11-21 18:04] LABS: HCG Pregnancy < 0.60 mIU/mL
[2020-11-21] MEDS ORDERED: Potassium Chlor 20 meq TAB.ER PO ONE (18:23)
[2020-11-21] MEDS ORDERED: Morphine 4 MG/ML VIAL (1 ml) IV ONE ×2 (18:47→20:26)
[2020-11-21 19:14] LABS: Creatine Kinase 24 U/L (10-223)
[2020-11-21] MEDS ORDERED: Ondansetron 4 mg VIAL 2 MG/ML 2 ml VIAL IV ONE (20:01)
[2020-11-21 22:03] LABS: Erythrocyte Sed Rate 9 mm/Hr (0-19)
[2020-11-21 22:32] LABS: Magnesium 1.9 mg/dL (1.9-2.7)
[2020-11-22] LABS: Uric Acid 4.1 mg/dL (2.3-6.6)
[2020-11-22] MEDS: Morphine 2 MG/ML SYRINGE IV PRN ×3 (01:45→07:37)
[2020-11-22] MEDS ORDERED: Morphine 2 MG/ML SYRINGE IV ONE (02:26)
[2020-11-22] MEDS: NS 0.9% 1000 ml BAG 1,000 ML IV SCH ×2 (02:33→13:57)
[2020-11-22] MEDS ORDERED: Morphine ER 30 mg TAB ** extended release PO ONE (05:02)
[2020-11-22 06:05] LABS: Anion Gap 6 mmol/L (2-11); CO2 Carbon Dioxide 21 mmol/L (22-32); Calcium 8.3 mg/dL (8.6-10.3); Chloride 107 mmol/L (101-111); Potassium 3.8 mmol/L (3.5-5.0); Sodium 134 mmol/L (135-145)
[2020-11-22 06:11] LABS: BUN/Creatinine Ratio 11.9 (8-20); Blood Urea Nitrogen 8 mg/dL (6-24); EGFR Non-African American 109.1 (>60); Glucose 117 mg/dL (70-100)
[2020-11-22 07:05] LABS: ABS Basophils 0.1 10^3/ul (0-0.2); ABS Lymphocytes 1.1 10^3/ul (1.0-4.8); ABS Monocytes 1.1 10^3/ul (0-0.8); ABS Neutrophils 12.9 10^3/ul (1.5-7.7); Hematocrit 38 % (35-47); Hemoglobin 13.1 g/dL (12.0-16.0); Lymphocyte % 7.1 %; Mean Corpuscular HGB Conc 34 g/dL (31-36); Mean Corpuscular Hemoglobin 31 pg (27-31); Mean Corpuscular Volume 90 fL (80-97); Mean Platelet Volume 8.4 fL (7.4-10.4); Platelet Count 185 10^3/uL (150-450); Red Blood Count 4.26 10^6 /uL (3.70-4.87); Red Cell Distribution Width 13 % (10-15); White Blood Count 15.1 10^3/uL (3.5-10.8)
[2020-11-22 11:40] LABS: Erythrocyte Sed Rate 2 mm/Hr (0-19)
[2020-11-22 11:56] LABS: C Reactive Protein 61.51 mg/L (<8.01)
[2020-11-22] MEDS ORDERED: Ondansetron 4 mg VIAL 2 MG/ML 2 ml VIAL IV PRN (12:22)
[2020-11-22] MEDS: LEVONORGESTREL ETHINYL ESTRAD PO SCH (18:51)
[2020-11-22 21:30] LABS: Rheumatoid Factor < 10 IU/mL (<15)
[2020-11-23] MEDS: NS 0.9% 1000 ml BAG 1,000 ML IV SCH (00:44)
[2020-11-23 08:21] LABS: ABS Lymphocytes 0.9 10^3/ul (1.0-4.8); ABS Monocytes 0.8 10^3/ul (0-0.8); ABS Neutrophils 8.9 10^3/ul (1.5-7.7); Hematocrit 35 % (35-47); Hemoglobin 11.8 g/dL (12.0-16.0); Lymphocyte % 8.9 %; Mean Corpuscular HGB Conc 34 g/dL (31-36); Mean Corpuscular Hemoglobin 31 pg (27-31); Mean Corpuscular Volume 90 fL (80-97); Mean Platelet Volume 8.6 fL (7.4-10.4); Platelet Count 178 10^3/uL (150-450); Red Blood Count 3.85 10^6 /uL (3.70-4.87); Red Cell Distribution Width 13 % (10-15); White Blood Count 10.6 10^3/uL (3.5-10.8)
[2020-11-23 08:25] LABS: BUN/Creatinine Ratio 7.3 (8-20); Calcium 8.8 mg/dL (8.6-10.3); EGFR African American 165.7 (>60); Potassium 4.3 mmol/L (3.5-5.0)
[2020-11-23] MEDS: LEVONORGESTREL ETHINYL ESTRAD PO SCH (08:56)
[2020-11-23 09:05] VITALS: BP 108/50
[2020-11-23 12:34] LABS: Chlamydia trachomatis NAA Negative (Negative); Neisseria gonorrhoeae (GC) NAA Negative (Negative)
[2020-11-23 21:22] LABS: EBV Capsid Ag IgG Ab Positive (Negative); EBV Capsid Ag IgM Ab Negative (Negative); Epstein-Barr Nuclear Antigen Positive (Negative)
[2020-11-24 17:44] LABS: HLA B27 Negative
[2020-11-24 18:55] LABS: Anaplasma phagocytophilium <1:64 titer (<1:64); Ehrlichia chaffeensis IgG AB <1:64 titer (<1:64); Lyme Disease Serology Negative (Negative)
== END 2020-11-23 18:03 | disposition home or self-care (01) ==
LOC: ED 16:14 → MED 16:14
PROVIDERS: ADMIT Internal Medicine; ATTEND Pediatrics